=== PATIENT | male | born 1950 | race Caucasian/White ===

== ENCOUNTER 2020-05-19 10:51 | Day surgery (SDC) | payer MEDICARE, SELFPAY ==
--- NOTE | 2020-05-16 09:39 | P.CONAN_ITS ---
Documented by User: Megan Santiago 05/16/20 09:41 HPI - Anesthesia Eval Consult details Narrative: 69yo M for Colonoscopy PMFSH Past Medical History Medical History (Updated 05/16/20 @ 09:39 by Megan Santiago) Asthma Blind in both eyes Diabetes mellitus GERD (gastroesophageal reflux disease) Hx of low back pain Hx of non-Hodgkin's lymphoma [place] Surgical History Surgical History History of esophagogastroduodenoscopy (EGD) Hx of colonoscopy Hx of hemorrhoidectomy Social History Social History Smoking Status: Never smoker Use of substances other than those prescribed or required for medical reasons: No Have you been hit, kicked, punched, or otherwise hurt by someone within the past year? If so, by whom?: No Advance Directives: No Advance Directives Information Provided: Yes (unknown) Advance Directives on File: No Meds Allergies Allergy/AdvReac Type Severity Reaction Status Date / Time oxycodone [From PERCOCET] Allergy Unknown Hives Verified 05/14/20 14:11 tramadol [TRAMADOL] Allergy Unknown HIVES Verified 05/14/20 14:11 Home Medications Medication Instructions Recorded Confirmed Type albuterol sulfate [Ventolin HFA] 2 puff INHALATION Q4-6H PRN 05/14/20 05/14/20 History aspirin [Aspir-81] 81 mg PO DAILY 05/14/20 05/14/20 History fluticasone propion-salmeterol 1 inh INHALATION BID 05/14/20 05/14/20 History [Advair Diskus] glipizide 2.5 mg PO DAILY 05/14/20 05/14/20 History melatonin 5 mg PO BEDTIME PRN 05/14/20 05/14/20 History metformin 1,000 mg PO BID 05/14/20 05/14/20 History montelukast 10 mg PO BEDTIME 05/14/20 05/14/20 History omeprazole 20 mg PO DAILY 05/14/20 05/14/20 History quetiapine 100 mg PO DAILY 05/14/20 05/14/20 History Exam Exam Date and Time: May 16, 2020 0939 Pertinent Lab Results Pertinent Lab Results: Laboratory Tests 10/15/19 10/15/19 14:25 14:25 WBC 8.3 Hgb 14.2 Hct 42.9 Plt Count 224 Sodium 137 Potassium 4.4 Chloride 104 BUN 13 Creatinine 1.01 Assessment and Plan Assessment Anesthesia Assessment: Chart Reviewed Documented by User: Zarina Bernardo 05/19/20 11:16 [facility] Past Medical History Medical History (Updated 05/16/20 @ 09:39 by Megan Santiago) Asthma Blind in both eyes Diabetes mellitus GERD (gastroesophageal reflux disease) Hx of low back pain Hx of non-Hodgkin's lymphoma [place] Surgical History Surgical History History of esophagogastroduodenoscopy (EGD) Hx of colonoscopy Hx of hemorrhoidectomy Social History Social History Smoking Status: Never smoker Use of substances other than those prescribed or required for medical reasons: No Have you been hit, kicked, punched, or otherwise hurt by someone within the past year? If so, by whom?: No Advance Directives: No Advance Directives Information Provided: Yes (unknown) Advance Directives on File: No Meds Allergies Allergy/AdvReac Type Severity Reaction Status Date / Time oxycodone [From PERCOCET] Allergy Unknown Hives Verified 05/14/20 14:11 tramadol [TRAMADOL] Allergy Unknown HIVES Verified 05/14/20 14:11 Home Medications Medication Instructions Recorded Confirmed Type albuterol sulfate [Ventolin HFA] 2 puff INHALATION Q4-6H PRN 05/14/20 05/14/20 History aspirin [Aspir-81] 81 mg PO DAILY 05/14/20 05/14/20 History fluticasone propion-salmeterol 1 inh INHALATION BID 05/14/20 05/14/20 History [Advair Diskus] glipizide 2.5 mg PO DAILY 05/14/20 05/14/20 History melatonin 5 mg PO BEDTIME PRN 05/14/20 05/14/20 History metformin 1,000 mg PO BID 05/14/20 05/14/20 History montelukast 10 mg PO BEDTIME 05/14/20 05/14/20 History omeprazole 20 mg PO DAILY 05/14/20 05/14/20 History quetiapine 100 mg PO DAILY 05/14/20 05/14/20 History Exam Height,Weight and Vital Signs: Lab Results 05/19/20 Range/Units 10:53 POC Glucose 190 H (60-115) mg/dL Vital Signs Pulse Resp BP Pulse Ox 05/19/20 10:52 91 18 123/88 97 Airway Mallampati Class: III TM Dist: >3cm Neck ROM: Full Heart: RRR Lungs: CTAB Assessment and Plan Assessment Anesthesia Assessment: Anesthesia Plan Discussed and Chart Reviewed Final Anesthetic Review NPO: Yes ASA Class: III Final Preanesthetic Review: No Changes in Pt Med Stat, Meds/Allgs Chart Reviewed, Consent Obtained/Reviewed and Anes Risks/Benef Reviewed Patient Risk: Intermediate Procedure Risk: Low Anesthetic Plan Anesthetic Plan: MAC: Disposition: Standard PACU
[2020-05-19 10:52] VITALS: BP 123/88; PULSE 91; RESP 18; O2SAT 97; BMI 24.1
[2020-05-19 11:02] LABS: Glucose, Whole Blood 190 mg/dL (60-115)
[2020-05-19] MEDS: Lactated Ringers 1,000 ML 100 ML IVCONT (11:16)
[2020-05-19 11:54] VITALS: BP 101/68; PULSE 90; RESP 16; TEMP 36; O2SAT 95
--- NOTE | 2020-05-19 11:59 | PM.OP ---
Brief Operative Note Date of procedure: 05/19/20 Pre-op diagnosis: Screening Post-op diagnosis: other (Diverticulosis, Internal hemorrhoids) Procedure: Colonoscopy to cecum and TI Surgeon: Chung Hernandez Anesthesia: MAC Estimated blood loss (mL): 0 Pathology: none sent Condition: stable Disposition: PACU
[2020-05-19 12:09] VITALS: BP 92/61; PULSE 82; RESP 16; O2SAT 96
--- NOTE | 2020-05-19 12:18 | OP_ITS ---
SURGEON: Chung Hernandez MD INDICATIONS: The patient presents for evaluation of colorectal cancer screening. Full consent has been obtained from him for this, including risks of bleeding and perforation. PREOPERATIVE DIAGNOSIS: Colorectal cancer screening. POSTOPERATIVE DIAGNOSIS: PROCEDURE PERFORMED: Colonoscopy to cecum and terminal ileum. ESTIMATED BLOOD LOSS: COMPLICATIONS: ANESTHESIA: Monitored anesthesia care. ASSISTANTS: SPECIMENS: POSTOPERATIVE DIAGNOSES: Colorectal cancer screening, sigmoid diverticulosis and small internal hemorrhoids. DESCRIPTION OF PROCEDURE: The patient was placed in the left lateral decubitus position. The digital rectal exam revealed no abnormalities. The Olympus video pediatric colonoscope was entered into the rectum and advanced easily to the cecum. Once in the cecum, I did identify cecal pouch with appendiceal orifice and a normal-appearing ileocecal valve. The terminal ileum was cannulated and appeared normal. The scope was withdrawn back in the colon. The majority of the cecum was well visualized and appeared normal. There were small areas of some liquid stool, which were irrigated and suctioned away as best as possible. The great majority of the cecum was visualized and appeared normal. The scope was slowly withdrawn assessing all mucosal surfaces carefully. For the most part, preparation was very good throughout the colon, although again, there were some small areas of liquid stool, which were irrigated and suctioned away as best as possible. I did not visualize any sign of polyps, colitis, nor angiodysplasia. There was a mild amount of sigmoid diverticulosis. In the rectum, scope was retroflexed visualizing small internal hemorrhoids, but no other pathology. The rectal mucosa appeared normal. The scope was straightened out and withdrawn from the patient. He tolerated the procedure well and was returned to recovery area in stable condition. IMPRESSION: 1. Sigmoid diverticulosis. 2. Internal hemorrhoids. PLAN: Given the patient's negative exam, I would recommend a repeat colonoscopy in 10 years for further screening. He was advised that he could resume his aspirin today. This has been discussed with his family. MD MATHEUS Kan/ELENA / [phone]
[2020-05-19 12:24] VITALS: BP 147/94; PULSE 89; RESP 18; O2SAT 97
[2020-05-19 12:39] VITALS: BP 152/97; PULSE 83; RESP 18; TEMP 36.1; O2SAT 99
--- NOTE | 2020-05-19 13:24 | HO.POSTANES ---
Post Anesthesia Evaluation Post Anesthesia Evaluation Vital Signs: Vital Signs Temp Pulse Resp BP Pulse Ox 05/19/20 12:39 96.9 F 83 18 152/97 H 99 05/19/20 12:24 89 18 147/94 H 97 05/19/20 12:09 82 16 92/61 96 05/19/20 11:54 96.8 F 90 16 101/68 95 05/19/20 10:52 91 18 123/88 97 Anesthesia: Monitored Mental Status: Awake Pain Control: Satisfactory Nausea/Vomiting: None Hydration: Adequate Anesthesia-Related Issues: No Anes. Related Issues
== END 2020-05-19 23:59 | disposition home or self-care (01) ==
PROVIDERS: PCP Internal Medicine Geriatric Medicine; Visit Provider Internal Medicine
PROC: 0DJD8ZZ Inspection of Lower Intestinal Tract, Via Natural or Artificial Opening Endoscopic (ICD-10-PCS; CPT 45378; principal; 2020-05-19 11:00)
DX: Z12.11 Encounter for screening for malignant neoplasm of colon (principal); K57.30 Diverticulosis of large intestine without perforation or abscess without bleeding; K64.8 Other hemorrhoids; K21.9 Gastro-esophageal reflux disease without esophagitis; K90.1 Tropical sprue; H54.8 Legal blindness, as defined in USA; H35.52 Pigmentary retinal dystrophy; J45.909 Unspecified asthma, uncomplicated; E11.9 Type 2 diabetes mellitus without complications; Z79.84 Long term (current) use of oral hypoglycemic drugs; Z79.51 Long term (current) use of inhaled steroids; Z79.82 Long term (current) use of aspirin; Z79.899 Other long term (current) drug therapy; Z85.72 Personal history of non-Hodgkin lymphomas; Z92.21 Personal history of antineoplastic chemotherapy; Z88.8 Allergy status to other drugs, medicaments and biological substances
CPT/HCPCS: G0121; 82947

== ENCOUNTER → 2021-09-08 12:54 | Outpatient (BNVA) | payer MEDICARE, MEDICAID, SELFPAY | PROVIDERS: PCP Internal Medicine Geriatric Medicine; Visit Provider Orthopaedic Surgery | DX: M72.0 Palmar fascial fibromatosis [Dupuytren] (principal) | CPT/HCPCS: 99202 ==

== ENCOUNTER 2025-06-01 10:28 | Outpatient (REF) | payer OTHER, SELFPAY ==
--- OUTSIDE RECORDS SUMMARY | 2025-06-01 10:36 | XMS_ITS | Clinical Summary ---
Author Organization [facility] Address [address] [place] [address] Phone Care Team Providers Care Review Consultant Name Role Phone Wayne Fan MD Primary Care Provider [phone] Allergies Active Allergy Reactions Criticality Noted Date Comments Tramadol Anaphylaxis High 04/12/2025 Medications cyclobenzaprine (FLEXERIL) 10 mg tablet Take 1 tablet (10 mg total) by mouth 3 (three) times a day if needed for muscle spasms for up to 10 days. 15 tablet 04/12/2025 Active Encounters Date Type Department Care Team Description 04/12/2025 10:26 PM EDT - 04/12/2025 10:56 PM EDT Emergency [facility] Emergency [address] [place] [address] Acute bilateral low back pain without sciatica (Primary Dx) Discharge Disposition: Home or Self Care from Last 3 Months Social History Tobacco Use Types Packs/Day Years Used Date Smoking Tobacco: Never Assessed Sex and Gender Information Value Date Recorded Sex Assigned at Not on file Legal Sex Male 2:35 PM EST Gender Identity Not on file Sexual Orientation Not on file Last Filed Vital Signs Vital Sign Reading Time Taken Comments Blood Pressure 132/81 04/12/2025 9:35 PM EDT Pulse 84 04/12/2025 9:35 PM EDT Temperature - - Respiratory Rate 18 04/12/2025 9:35 PM EDT Oxygen Saturation 95% 04/12/2025 9:35 PM EDT Inhaled Oxygen Concentration - - Weight 71.2 kg (157 lb) 04/12/2025 9:35 PM EDT Height 170.2 cm (5' 7 ) 04/12/2025 9:35 PM EDT Body Mass Index 24.59 04/12/2025 9:35 PM EDT Plan of Treatment Health Maintenance Due Date Last Done Comments Colorectal Cancer Screening: Colonoscopy 1950 Diabetes: Annual GFR (Glomer ular Filtration Rate) 1951 Diabetes: Annual Foot Exam 1961 Diabetes: Annual Retina Eye Exam 1961 DTaP,Tdap,and Td Vaccines (1 - Tdap) 1970 Pneumococcal Vaccine: 50+ Ye ars (1 of 2 - PCV) 1970 RSV Immunization Adult Patie nts (1 - Risk 50-74 years 1-dose series) 2001 Zoster Vaccines (1 of 2) 2001 Depression Screening 07/18/2024 COVID-19 Vaccine (1 - 2024-2 6 season) 2025 Influenza Vaccine (#1) 2025 05/13/2023 Abdominal Aortic Aneurysm (A AA) Screen 04/12/2025 Diabetes: Annual Urine Albumin-Creatinine Ratio (uACR) 04/12/2025 Diabetes: Blood Sugar Contro l Test (HGBA1C) 04/12/2025 Falls Risk Assessment 04/12/2025 Hepatitis C Screening 04/12/2025 Medicare Annual Wellness Visit 04/12/2025 Social Influencers of Health Screening 04/12/2025 Cholesterol Screening (Lipid Panel) 08/19/2026 08/19/2021 HIB Vaccines Aged Out No longer eligi ble based on patient's age to complete this topic HPV Vaccines Aged Out No longer eligi ble based on patient's age to complete this topic Hepatitis A Vaccines Aged Out No long er eligible based on patient's age to complete this topic Hepatitis B Vaccines Aged Out No long er eligible based on patient's age to complete this topic IPV Vaccines Aged Out No longer eligi ble based on patient's age to complete this topic MMR Vaccines Aged Out No longer eligi ble based on patient's age to complete this topic Meningococcal ACWY Vaccine Aged Out N o longer eligible based on patient's age to complete this topic Meningococcal B Vaccine Aged Out No l onger eligible based on patient's age to complete this topic RSV Immunization Patients Un juan 20 months Aged Out No longer eligible b ased on patient's age to complete this topic Varicella Vaccines Aged Out No longer eligible based on patient's age to complete this topic Insurance [employer] on file Care Teams Review Consultant Relationship Specialty Start Date End Date Wayne Fan MD [id number] [facility] [place] [phone] PCP - General Internal Medicine 07/18/12
[2025-06-01 10:54] LABS: MANUAL DIFF FLAG NO
[2025-06-01 11:36] LABS: Hematocrit 49.6 % (42.0-52.0); Hemoglobin 17.3 g/dl (14.0-18.0); Imm Gran Abs Auto 0.02 X10*3/uL (0.00-0.03); Imm Gran Pct Auto 0.2 % (0.0-0.4); Lymphocytes Absolute Auto 1.3 X10*3/uL (1.2-4.9); Mean Corpuscular HGB Conc 34.9 g/dl (31.0-36.0); Mean Corpuscular Hemoglobin 33.0 pg (27.0-33.0); Mean Corpuscular Volume 94.5 fL (80.0-98.0); NRBC Abs Auto 0.000 X10*3/uL (0.0-0.012); NRBC Pct Auto 0.0 /100WBC (0.0-0.2); PLT CLUMP 1; Red Blood Count 5.25 X10*6/uL (4.60-5.80); SCAN SMEAR FLAG 1
[2025-06-01 11:48] LABS: Alanine Aminotransferase 26 U/L (0-40); Albumin Level 4.6 g/dL (3.5-5.0); Alkaline Phosphatase 73 U/L (39-117); Anion Gap 20 (12-20); Aspartate Amino Transferase 40 U/L (5-37); Blood Urea Nitrogen 13 mg/dL (9-16); Calcium 10.0 mg/dL (8.4-10.2); Carbon Dioxide 25 mmol/L (22-29); Chloride 101 mmol/L (96-108); Cholesterol 118 mg/dL (<200); Estimated Glomerular Filt Rate > 60; HDL Cholesterol 45 mg/dL (>40); Potassium 4.6 mmol/L (3.3-5.1); Sodium 141 mmol/L (135-145); Total Protein 7.8 g/dL (6.5-8.0); Triglycerides 125 mg/dL (<150)
[2025-06-01 11:59] LABS: Syphilis Screen Nonreactive (Nonreactive)
[2025-06-01 12:00] LABS: HIV Num 1 0.08 S/CO (0.00-0.99); PSA,Total (Free>4and<10) 0.48 ng/mL (0.00-4.00)
[2025-06-01 12:04] LABS: White Blood Count 9.2 X10*3/uL (4.8-10.8)
== END 2025-06-01 10:29 | disposition home or self-care (01) ==
LOC: HO.LAB 10:28
PROVIDERS: PCP Internal Medicine; Visit Provider Internal Medicine
DX: E11.9 Type 2 diabetes mellitus without complications (principal); Z12.5 Encounter for screening for malignant neoplasm of prostate
CPT/HCPCS: 36415; 80053; 80061; 84153; 85025; 86780; 87389